=== PATIENT | male | born 1965 | race Caucasian/White ===

== ENCOUNTER → 2018-12-02 | Outpatient (CLI) | payer OTHER ==
--- NOTE | 2018-12-02 16:32 | REP ---
Clinical: Nontraumatic elbow pain. Technique: AP, lateral, bilateral oblique views of the right elbow. Findings: Moderate osteoarthritic degenerative changes are appreciated including cortical irregularity and osteophyte formation involving the humeral condyles, olecranon process, coronoid process, and radial head with associated subchondral sclerosis and elements of joint space narrowing. No obvious acute fracture or dislocation. Impression: Moderate diffuse osteoarthritic degenerative changes. Electronically Signed by Monty Chadwick MD 12/02/2018 04:23 P
== END ==
LOC: M LRY 15:56
PROVIDERS: ATTEND Physician Assistant
DX: M19.021 Primary osteoarthritis, right elbow (principal); M25.521 Pain in right elbow
CPT/HCPCS: 73080; 96372; G0463; J1885

== ENCOUNTER → 2019-01-08 | Outpatient (REF) | payer OTHER | LOC: M SFHCLERA 12:25 | PROVIDERS: ATTEND Nurse Practitioner Family | DX: L03.011 Cellulitis of right finger (principal) ==

== ENCOUNTER → 2019-09-01 | Outpatient (CLI) | payer OTHER ==
--- NOTE | 2019-09-01 10:57 | REP ---
Two-view chest: 09/01/2019. Indication: Chest pain. Comparison: 07/21/2016. Findings: There is no air space consolidation, pleural effusion or pneumothorax. The cardiomediastinal silhouette is unremarkable. Chronic deformity of the right clavicle is present. Anterior bridging osteophytes of the thoracic spine are present consistent with DISH. Impression: No acute cardiopulmonary process. Electronically Signed by Alcon Trammell DO 09/01/2019 10:49 A
== END ==
LOC: M LRY 10:22
PROVIDERS: ATTEND Nurse Practitioner Family
DX: R07.89 Other chest pain (principal)
CPT/HCPCS: 71046; 93005; G0463

== ENCOUNTER → 2019-11-01 | Outpatient (CLI) | payer OTHER ==
--- NOTE | 2019-11-01 13:46 | REP ---
LUMBOSACRAL SPINE SERIES: Five views of the lumbosacral spine are performed. There is no compression fracture or malalignment. There is minimal spurring of L5 and S1. There is mild to moderate disc space narrowing and subchondral sclerosis at L5-S1, with sclerosis and spurring of the posterior facet joints at that level. Posterior elements are intact. IMPRESSION: Moderate degenerative changes L5-S1 level. Electronically Signed by Baldev Calzada MD 11/01/2019 07:57 P
--- NOTE | 2019-11-01 13:48 | REP ---
SACROILIAC JOINTS: Four views of the sacroiliac joints performed. No fracture or dislocation is seen. There does not appear to be significant narrowing of either sacroiliac joint. There is mild symmetrical subchondral sclerosis at both joints. IMPRESSION: Mild bilateral subchondral sclerosis at the SI joints without significant joint space narrowing. Electronically Signed by Baldev Calzada MD 11/01/2019 07:57 P
== END ==
LOC: M LAB 12:22
PROVIDERS: ATTEND Internal Medicine
DX: M48.10 Ankylosing hyperostosis [Forestier], site unspecified (principal)

== ENCOUNTER → 2020-12-06 | Outpatient (CLI) | payer OTHER ==
[~2020-12-06] MED LIST: METHACHOLINE KIT (J7674) INH ONE
--- NOTE | 2020-12-06 11:55 | PFTRPT ---
Height: 67.00 Inches Weight: 225.00 Lbs BSA: 2.13 Diagnosis: R06.02 DATE: 12/06/2020 ORDERED BY: Josh Strauss M.D. QUALITY: Study of excellent technical quality. PROCEDURE: Under protocol, methacholine was administered. Even after a maximal dose of 25 mg or 188.875 CDUs, no provocation dose ever achieved. Flow rates did return to baseline post bronchodilator administration. IMPRESSION: Negative methacholine challenge study. MTDD
== END ==
LOC: M CARPUL 10:21
PROVIDERS: ATTEND Internal Medicine Pulmonary Disease
DX: R06.02 Shortness of breath (principal)
CPT/HCPCS: 94070; J7674

== ENCOUNTER → 2022-04-04 | Outpatient (CLI) | payer OTHER | LOC: M RAD 09:57 | PROVIDERS: ATTEND Nurse Practitioner Family | DX: R22.42 Localized swelling, mass and lump, left lower limb (principal); M25.531 Pain in right wrist ==

== ENCOUNTER → 2022-04-25 | Outpatient (CLI) | payer OTHER ==
[~2022-04-25] MED LIST changes: -METHACHOLINE KIT (J7674) INH ONE; +OMEGA-3 1000MG CAPSULE ONE; +PROHANCE 279.3MG/ML 15ML VIAL ONE; +PROHANCE 279.3MG/ML 5ML VIAL ONE
== END ==
LOC: M PLAIMG 14:26
PROVIDERS: ATTEND Nurse Practitioner Family
DX: R22.42 Localized swelling, mass and lump, left lower limb (principal)
CPT/HCPCS: 73720; A9576

== ENCOUNTER → 2024-08-29 | Outpatient (CLI) | payer OTHER | LOC: M SLEEP 20:00 | PROVIDERS: ATTEND Internal Medicine | DX: R06.83 Snoring (principal) ==

== ENCOUNTER → 2025-06-01 | Outpatient (REF) | LOC: M PLAIMG 08:33 | PROVIDERS: ATTEND Internal Medicine | DX: R06.02 Shortness of breath (principal) ==